=== PATIENT | female | born 1945 | race Caucasian/White ===

== ENCOUNTER 2016-05-22 12:07 | Day surgery (SDC) | payer MEDICARE ==
[~2016-05-22 12:07] MED LIST: IV START KIT ONE; LACTATED RINGERS 1,000 ML ONE
[2016-05-22] MEDS ORDERED: LIDOCAINE 1% 2 ML VIAL ID PRN (12:32)
[2016-05-22] MEDS ORDERED: LACTATED RINGERS 1,000 ML IV SCH (12:32)
[2016-05-22] MEDS ORDERED: ONDANSETRON 4 MG/2ML 2 ML VIAL IV PRN (12:32)
[2016-05-22] MEDS ORDERED: PROPOFOL 20 ML IV ONE ×2 (12:54→13:59)
[2016-05-22] MEDS ORDERED: MIDAZOLAM HCL 1 MG/ML 2ML VIAL ONE (14:09)
[2016-05-22] MEDS ORDERED: LACTATED RINGERS 1,000 ML ONE (14:40)
== END 2016-05-22 15:17 | disposition home or self-care (01) ==
LOC: SDC 12:07
PROVIDERS: ATTEND Surgery
PROC: 0DJD8ZZ Inspection of Lower Intestinal Tract, Via Natural or Artificial Opening Endoscopic (ICD-10-PCS; principal; 2016-05-22)
DX: Z12.11 Encounter for screening for malignant neoplasm of colon (principal); K57.30 Diverticulosis of large intestine without perforation or abscess without bleeding; Z80.3 Family history of malignant neoplasm of breast; N39.41 Urge incontinence; E66.9 Obesity, unspecified; Z68.34 Body mass index [BMI] 34.0-34.9, adult; Z87.891 Personal history of nicotine dependence; Z88.0 Allergy status to penicillin; Z79.82 Long term (current) use of aspirin
CPT/HCPCS: 45378; J2250; J7120 ×2